=== PATIENT | male | born 1965 ===

== ENCOUNTER 2017-07-19 16:52 | Emergency (ER) | payer OTHER ==
[2017-07-19] MEDS ORDERED: Lidocaine 5% Patch TD STA (17:16)
--- NOTE | 2017-07-19 17:37 | ED PDOC ---
Upper Extremity Pain/Injury Time Seen by Provider: 07/19/17 17:02 Chief Complaint (Nursing): Upper Extremity Problem/Injury Chief Complaint (Provider): Atraumatic Right Sided Neck Pain History Per: Patient History/Exam Limitations: no limitations Onset/Duration Of Symptoms: Days (x3) Current Symptoms Are (Timing): Still Present Quality: "Pain" Exacerbating Factor(s): Movement Additional Complaint(s): 51 year old male presents to the emergency department complaining of radiating right sided neck pain x3 days. The patient reports that the pain radiates down his right arm and is worsened with movement of his neck and right shoulder. He reports that he was seen in an urgent care in [place] where he was prescribed prednisone and advised to follow up with a specialist to get an MRI of his neck. Patient states that he had no imaging performed at this time. Denies fever , trauma, weakness, chest pain, shortness of breath. Past Medical History Reviewed: Historical Data, Nursing Documentation, Vital Signs Vital Signs: Last Vital Signs Temp 99 F 07/19/17 17:06 Pulse 86 07/19/17 17:01 Resp 18 07/19/17 17:01 BP 162/96 H 07/19/17 17:01 Pulse Ox 98 07/19/17 17:01 - Medical History PMH: HTN - Surgical History Surgical History: No Surg Hx - Family History Family History: States: Unknown Family Hx - Social History Current smoker - smoking cessation education provided: No Ex-Smoker (has not smoked in the last 12 months): No Alcohol: None Drugs: Denies - Home Medications Home Medications: Ambulatory Orders Medication Instructions Recorded Cyclobenzaprine [Cyclobenzaprine 10 mg PO Q8 PRN #14 tab 07/19/17 HCl] Lidocaine 5% [Lidoderm] 1 ea TD DAILY PRN #10 patch 07/19/17 - Allergies Allergies/Adverse Reactions: Allergies Allergy/AdvReac Type Severity Reaction Status Date / Time No Known Allergies Allergy Verified 07/19/17 16:55 Review of Systems ROS Statement: Except As Marked, All Systems Reviewed And Found Negative Constitutional: Negative for: Fever, Weakness Cardiovascular: Negative for: Chest Pain Respiratory: Negative for: Shortness of Breath Musculoskeletal: Positive for: Neck Pain (right sided radiating down right arm) Physical Exam - Reviewed Nursing Documentation Reviewed: Yes Vital Signs Reviewed: Yes - Physical Exam Appears: Positive for: No Acute Distress Head Exam: Positive for: NORMAL INSPECTION Skin: Positive for: Normal Color, Warm, Dry. Negative for: Rash Eye Exam: Positive for: Normal appearance, EOMI, PERRL ENT: Positive for: Normal ENT Inspection. Negative for: Nasal Congestion, Tonsillar Exudate, Tonsillar Swelling Neck: Positive for: Painless ROM, Supple. Negative for: Normal (paracervical tenderness and right sided trapezius muscle tenderness) Cardiovascular/Chest: Positive for: Regular Rate, Rhythm, Chest Non Tender. Negative for: Tachycardia Respiratory: Positive for: Normal Breath Sounds. Negative for: Rales, Rhonchi, Wheezing, Respiratory Distress Gastrointestinal/Abdominal: Positive for: Normal Exam, Bowel Sounds, Soft. 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 Negative for: Deformity, Swelling Neurologic/Psych: Positive for: Alert, Oriented - ECG O2 Sat by Pulse Oximetry: 98 (RA) Pulse Ox Interpretation: Normal Medical Decision Making Medical Decision Makin Initial Impression 51 year old male presenting with right sided neck pain Initial Plan: * Lidoderm 1 ea TD * Toradol 20 mg IM * RAD Cervical Spine AP/LAT 1746 C-spine x-ray: C4 and C5 with ? osteophyte possible donor site noted in each corresponding vertebral body; c-spine straightening CT cervical spine w/o contrast ordered. 1924 CT cervical spine w/o contrast: 1. No acute cervical spine finding. 2. Sizable lucency of the right occipital lobe is partially visualized, likely encephalomalacia however a low attenuating CSF space occupying lesion is difficult to exclude. Please correlate with prior imaging if available. 3. Multilevel neural foraminal narrowing is most pronounced at C5-C6 bilaterally but left greater than right Results d/w Dr. Chou who recommends CT head. Pt. informed of results. Denies hx of previous ICH, strokes. Denies headaches, weakness. CT head w/o contrast ordered. 2125 CT head w/o contrast: 1. No acute intracranial findings. 2. The occipital horn of the right lateral ventricle is dilated. This is chronic and accounts for the abnormality seen on the cervical spine CT. Pt. will be prescribed Flexeril and Lidoderm. Pt. has Mobic. Advised to take Mobic with prescribed meds and to complete course of Prednisone. Also informed of possible sleepiness he may get from flexeril so he is not to take Flexeril if he is going to drive or operate heavy machinery. Also told to f/u with PMD or a neurologist for further evaluation for further evaluation. ----- Documented by Betty Werner acting as a scribe for Roman Burns PA-C. All medical record entries made by the Scribe were at my direction and personally dictated by me. I have reviewed the chart and agree that the record accurately reflects my personal performance of the history, physical exam, medical decision making, and the department course for this patient. I have also personally directed, reviewed, and agree with the discharge instructions and disposition. Disposition - Clinical Impression Clinical Impression: Cervical radiculopathy - Patient ED Disposition Is Patient to be Admitted: No - Disposition Referrals: [facility]galde [Outside] Rodney Mirza MD [Staff Provider] - Disposition: Routine/Home Disposition Time: 21:27 Condition: IMPROVED Additional Instructions: Follow with neck specialist or Dr. Aguilar Peña for further evaluation. Return to ED immediately if symptoms worsen. Complete course of Prednisone. Prescriptions: Cyclobenzaprine [Cyclobenzaprine HCl] 10 mg PO Q8 PRN #14 tab PRN Reason: Muscle Spasm Lidocaine 5% [Lidoderm] 1 ea TD DAILY PRN #10 patch PRN Reason: pain Instructions: Radiculopathy (DC) Forms: [employer] (Occitan) Print Language: SCOTTISH
[2017-07-19 21:35] VITALS: BP 117/72; PULSE 73; RESP 20; TEMP 98.2
[2017-07-19 22:00] VITALS: O2SAT 98
--- NOTE | 2017-07-20 07:44 | RAD ---
PROCEDURE: Cervical Spine Radiographs. HISTORY: Pain. COMPARISON: None. FINDINGS: BONES: Alignment maintained. No fracture. Dens Intact. DISC SPACES: Multilevel degenerative spondylosis. SOFT TISSUES: Normal. No prevertebral soft tissue swelling. OTHER FINDINGS: None. IMPRESSION: No fracture.
--- NOTE | 2017-07-20 08:01 | CT ---
PROCEDURE: CT HEAD WITHOUT CONTRAST. HISTORY: lucency in R occipital scalp COMPARISON: None available. TECHNIQUE: Axial computed tomography images were obtained through the head/brain without intravenous contrast. Radiation dose: Total exam DLP = mGy-cm. This CT exam was performed using one or more of the following dose reduction techniques: Automated exposure control, adjustment of the mA and/or kV according to patient size, and/or use of iterative reconstruction technique. FINDINGS: HEMORRHAGE: No intracranial hemorrhage. BRAIN: Right parietal encephalomalacia with dilatation of the posterior horn of the right lateral ventricle. No atrophy or chronic microvascular ischemic changes. VENTRICLES: Unremarkable. No hydrocephalus. CALVARIUM: Unremarkable. PARANASAL SINUSES: Unremarkable as visualized. No significant inflammatory changes. MASTOID AIR CELLS: Unremarkable as visualized. No inflammatory changes. OTHER FINDINGS: None. IMPRESSION: No acute hemorrhage.
--- NOTE | 2017-07-20 08:11 | CT ---
PROCEDURE: CT Cervical Spine without contrast HISTORY: neck pain radiating down R arm; no trauma COMPARISON: None available. TECHNIQUE: Axial computed tomography images were obtained of the cervical spine without the use of intravenous contrast. Coronal and sagittal reformatted images were created and reviewed. Radiation dose: Total exam DLP = mGy-cm. This CT exam was performed using one or more of the following dose reduction techniques: Automated exposure control, adjustment of the mA and/or kV according to patient size, and/or use of iterative reconstruction technique. FINDINGS: VERTEBRAE: No fracture. Normal alignment. No destructive bony lesion. DISCS/SPINAL CANAL/NEURAL FORAMINA: Multilevel degenerate spondylosis and foraminal stenoses. Multilevel disc space narrowing. PARASPINAL SOFT TISSUES: Unremarkable. OTHER FINDINGS: None. IMPRESSION: No fracture.
== END 2017-07-19 21:34 | disposition home or self-care (01) ==
LOC: H.ER 16:52
DX: M54.12 Radiculopathy, cervical region (principal); I10 Essential (primary) hypertension
CPT/HCPCS: 70450; 72040; 72125; 96372; 99284; J1885